=== PATIENT | female | born 1985 | race Caucasian/White ===

== ENCOUNTER 2016-08-15 14:03 | Outpatient (CLI) | payer MEDICAID ==
[~2016-08-15] VITALS: Ht 147.3 cm; Wt 76.4 kg
[2016-08-15 15:02] VITALS: BP 110/62; PULSE 77; Ht 147.3 cm; Wt 76.4 kg
[2016-08-15] MEDS ORDERED: PRENAT PO (15:03)
--- NOTE | 2016-08-15 17:23 | RADRPT ---
PROCEDURE: OB ultrasound for biophysical profile CLINICAL INDICATION: Biophysical profile. TECHNIQUE: Multiple sonographic images of the pelvis were obtained. Transabdominal view of the gr avid uterus are available for review. The images were reviewed on a PACS workstation. COMPARISON: None FINDINGS: breathing movement = 2/2 tone = 2/2 motion = 2/2 Quantitative amniotic fluid volume = 2/2 MALLY = 10.5 cm Single live intrauterine with cardiac activity at 138 beats per minute. There is a anterior placenta without previa. The cervix is closed and measures 3.6 cm in length. IMPRESSION: 1. Single living intrauterine gestation in breech position. 2. Biophysical profile = 8/8. 3. MALLY = 10.5 cm. RPTAT: AACC Physician Marian Date Time Electronically viewed and signed by Physician Marian on 08/15/2016 17:22 /
--- NOTE | 2016-08-15 18:56 | CONS ---
Date/Time of Note Date/Time of Note DATE: 08/15/16 TIME: 18:48 Consultation Date/Type/Reason Admit Date/Time August 15, 2069 OB triage consult Reason for Consultation This patient is 31 years old 9 para 6 she had one set of twins ,3 C- section to a spontaneous vaginal delivery. Her estimated date of delivery is October 29, 2016 which makes her now 29 weeks and 2 days. She came to triage complaining of uterine contraction for 3 days On general examination she is well-developed well-nourished lady at midterm Her abdomen is soft without any contractions . Her vital signs are normal, blood pressure 110/62, pulse rate 77, respiration 18 , and temperature is 98.5 Her urinalysis was negative . An ultrasound study was done The report was a single live intrauterine with cardiac activity of 1 35 bpm and MALLY only of 10.5 cm placenta was anterior without previa cervix was closed and cervical length was 3.6 cm Her biophysical profile was 8 out of 8 Constitutional: No chills, No diaphoresis, No disoriented, No febrile, No improved, No no complaints, No other, No poor po, No requiring IVF, No requiring O2 Eyes: No discharge, No no complaints, No other, No pain, No redness, No visual change ENT: No bleeding, No congestion, No discharge, No dysphagia, No no complaints, No other, No pain, No sore throat Respiratory: No cough, No no complaints, No other, No pain, No pleuritic pain, No shortness of breath, No sputum, No wheezing Cardiovascular: No chest pain, No edema, No lightheadedness, No no complaints, No orthopenea, No other, No palpitations, No paroxysmal nocturnal dyspnea Gastrointestinal: other (No contractions no evidence of labor), No blood, No constipation, No decreased appetite, No diarrhea, No flatus, No nausea, No no complaints, No pain, No passing stool, No vomiting Genitourinary: No bleeding, No discharge, No dysuria, No flank pain, No hematuria, No no complaints, No other Musculoskeletal: other (Pelvic exam was not done), No back pain, No bone/joint pain, No neck pain, No no complaints, No restricted range of motion, No swelling Skin: No bruising, No erythema, No laceration, No no complaints, No other, No pruritis, No rash, No skin lesions Neurologic: No confusion, No dizziness, No focal-weakness, No headache, No no complaints, No other, No seizure, No syncope Endocrine: No dry skin, No no complaints, No other, No polydypsia, No polyuria , No temp intolerance Lymphatic: No adenopathy, No lymphadema, No no complaints, No other, No tender nodes Additional Comments With these normal finding patient was discharged home with instruction to rest at home and return to clinic or to triage in case of labor or vaginal bleeding Social History Smoking Status: Never smoker Exam/Review of Systems Vital Signs Vitals Vital Signs Date Time Temp Pulse Resp B/P Pulse Ox O2 Delivery O2 Flow Rate FiO2 08/15/16 15:02 98.8 77 110/62 ALEAH CHAPPELL MD August 15, 2016 18:56
== END 2016-08-15 19:00 | disposition home or self-care (01) ==
LOC: OBT 14:03 → L-D 14:05 → OBT 19:00
PROVIDERS: ATTEND Obstetrics & Gynecology
DX: O62.8 Other abnormalities of forces of labor (principal); Z3A.29 29 weeks gestation of pregnancy
CPT/HCPCS: 76817; 76818; Z7500; G0463

== ENCOUNTER 2016-08-24 00:20 | Outpatient (CLI) | payer MEDICAID ==
[~2016-08-24] VITALS: Ht 147.3 cm; Wt 77.1 kg
[~2016-08-24 00:20] MED LIST: PRENAT PO
[2016-08-24 00:59] VITALS: Ht 147.3 cm; Wt 77.1 kg
[2016-08-24 01:28] LABS: ADD UMIC YES; URINE BILIRUBIN (Dip) NEGATIVE (NEGATIVE); URINE BLOOD (Dip) TRACE (NEGATIVE); URINE COLOR LT. YELLOW (YELLOW); URINE GLUCOSE (Dip) NEGATIVE (NEGATIVE); URINE KETONES (Dip) NEGATIVE (NEGATIVE); URINE LEUKOCYTE ESTERASE (Dip) 1+ (NEGATIVE); URINE NITRITE (Dip) NEGATIVE (NEGATIVE); URINE TOTAL PROTEIN (Dip) NEGATIVE (NEGATIVE); URINE UROBILINOGEN (Dip) 0.2 E.U./dL (0.1-1.0)
[2016-08-24 01:41] LABS: SQUAMOUS EPITHELIAL CELL,UR MODERATE
[2016-08-24 01:42] LABS: BACTERIA,URINE MODERATE
--- NOTE | 2016-08-24 02:51 | RADRPT ---
PROCEDURE: ULTRASOUND OBSTETRICAL CLINICAL INDICATION: 31-year-old female with contractions for cervical length evaluation. TECHNIQUE: Multiple sonographic images of the pelvis were obtained. The images were reviewed on a PACS workstation. COMPARISON: No prior studies are available for comparison. FINDINGS: The cervix is closed with a length of 3.7 cm measured transvaginally. IMPRESSION: The cervix has a length of 3.7 cm. .Malik Kruger MD, MD Date Time Electronically viewed and signed by .Malik Kruger MD, on 08/24/2016 02:51 .M/
--- NOTE | 2016-08-24 04:10 | TRIAGE ---
OB Triage Datetime Report Generated by CPN: 08/24/2016 04:10 Datetime: 08/24/2016 03:00 Labor Evaluation Frequency: NONE Duration (sec)2399: NONE FHR Baseline Changes: No Baseline Change Comments: INDETERMINATE;FREQ MATERNAL REPOSITIONING Datetime: 08/24/2016 02:30 FHR Baseline Changes: No Baseline Change Comments: INDETERMINATE, FREQUENT MATERNAL MOVEMENT Datetime: 08/24/2016 01:30 Labor Evaluation Frequency: NONE Monitor Mode: External Duration (sec)2399: NONE Pattern: Normal: <= 5 Contractions in 10 Minutes Heart Rate FHR Baseline Rate: 145 Monitor Mode: Internal Scalp Electrode FHR Baseline Changes: No Baseline Change Variability: Moderate 6-25 bpm Accelerations: 10X10 Datetime: 08/24/2016 01:02 Assessment Type: Triage Maternal Assessment Level of Consciousness: Fully Conscious Headache: Denies Blurred Vision: No Respiratory Effort: Unlabored; Regular Rhythm; Equal Expansion Nausea/Vomiting: Denies RUQ Epigastric Pain: Denies Facial Edema: None Fall Risk Assessment History of Falling: (0) No Secondary Diagnosis: (0) No Ambulatory Aid: (0) Bedrest/Nurse Assist IV Therapy: (0) No Gait: (0) Normal/Bedrest/Immobile Mental Status: (0) Oriented to Own Ability Fall Score: 0 Fall Risk Score Definition: No Risk: No action required Datetime: 08/24/2016 00:41 Stage of : OB Triage Temperature Route: Oral Datetime: 08/24/2016 00:17 Time of Arrival: 08/24/2016 00:17 EGA: 30.4 Arrived By: Wheelchair Arrived From: Home Chief Complaint: VAG PRESSURE, FREQUENT URINATION Movement: Present Contractions: Denies/Absent Rupture of Membranes: Denies Vaginal Bleeding: None Vaginal Discharge: Denies Recent Sexual Intercouse: Yes Abdominal Trauma: Not Applicable Patient Complaints: Urinary Frequency Time Provider Notified: 08/24/2016 02:00 Provider Notified: DR. ZAPATA Initial Plan: EFM, UA, CALL OB, CVL Datetime: 08/15/2016 18:52 Labor Evaluation Frequency: 0 Monitor Mode: External Resting Tone Vader: Relaxed Heart Rate FHR Baseline Rate: 145 Monitor Mode: External US Variability: Moderate 6-25 bpm Decelerations: None Category: Category I Pain Assessment Pain Scale: 0 Pain Presence: None/Denies Pain Type: N/A Pain Goal: 3 Pain Relief Measures: Comfort Measures Datetime: 08/15/2016 18:45 Stage of : OB Triage Datetime: 08/15/2016 17:00 Labor Evaluation Frequency: 0 Monitor Mode: External Resting Tone Vader: Relaxed Heart Rate FHR Baseline Rate: 145 Monitor Mode: External US Variability: Moderate 6-25 bpm Decelerations: None Category: Category I Pain Assessment Pain Scale: 0 Pain Presence: None/Denies Pain Type: N/A Pain Goal: 3 Pain Relief Measures: Comfort Measures Datetime: 08/15/2016 16:10 Stage of : OB Triage Datetime: 08/15/2016 16:05 Labor Evaluation Frequency: 0 Monitor Mode: External Resting Tone Vader: Relaxed Heart Rate FHR Baseline Rate: 145 Monitor Mode: External US Variability: Moderate 6-25 bpm Decelerations: None Category: Category I Pain Assessment Pain Scale: 3 Pain Presence: None/Denies Pain Type: N/A Pain Goal: 3 Pain Relief Measures: Comfort Measures Datetime: 08/15/2016 14:58 Stage of : OB Triage Assessment Type: Triage Maternal Assessment Level of Consciousness: Fully Conscious DTR's/Clonus: DTRs 2+; No Clonus Headache: Denies Blurred Vision: No Respiratory Effort: Unlabored; Regular Rhythm; Equal Expansion Breath Sounds, Left: Clear and Equal Breath Sounds, Right: Clear and Equal Nausea/Vomiting: Denies RUQ Epigastric Pain: Denies Facial Edema: None Temperature Route: Axillary Fall Risk Assessment History of Falling: (0) No Secondary Diagnosis: (0) No Ambulatory Aid: (0) Bedrest/Nurse Assist IV Therapy: (0) No Gait: (0) Normal/Bedrest/Immobile Mental Status: (0) Oriented to Own Ability Fall Score: 0 Fall Risk Score Definition: No Risk: No action required Labor Evaluation Frequency: 0 Monitor Mode: External Resting Tone Vader: Relaxed Heart Rate FHR Baseline Rate: 145 Monitor Mode: External US Variability: Moderate 6-25 bpm Accelerations: 10X10 Decelerations: None Category: Category I Pain Assessment Pain Scale: 2 Pain Presence: Intermittent Pain Type: Cramping Pain Location: Perineum Pain Goal: 3 Pain Relief Measures: Comfort Measures Datetime: 08/15/2016 14:57 EGA: 29.2 Datetime: 08/15/2016 14:56 Time of Arrival: 08/15/2016 13:53 Arrived By: Ambulatory Arrived From: Dr. Pineda Chief Complaint: SENT FROM OFFICE FOR C/O UC'S Q 20 MIN X 3 DAYS. PREVIOUS C/S. DENIES BLEEDING O R LEAKING OF FLUID Movement: Present Contractions: Occasional Rupture of Membranes: Denies Vaginal Bleeding: None Vaginal Discharge: Denies Recent Sexual Intercouse: Denies Abdominal Trauma: Not Applicable Patient Complaints: Contractions; Cramping Time Provider Notified: 08/15/2016 16:10 Provider Notified: EVANGELIST Initial Plan: MONITOR, BPP, MALLY, CL
--- NOTE | 2016-08-24 04:21 | PN ---
Triage Information Date/Time 31-year-old with IUP at 30 weeks and 4 days complaining of urinary frequency and pelvic pressure symptoms. Symptoms a started since midnight 2 days ago. Patient has a history of drug usage during . Her U tox was positive for amphetamine. She admits using drugs during . She denies any leaking of fluid, vaginal bleeding or decreased movement. Her urine toxicology during is positive for methamphetamine. Weeks of Gestation 30 weeks and 4 days : 8 Para: 5 Diabetes: none Hypertention: none Additional information She was noted to have no contraction on the monitor. NST appropriate for gestational age. Objective Exam General appearance: Alert and oriented 4 patient does not appear to be in any acute distress. Abdomen: Soft, gravid, fundal height consistent with gestational age. NST: Appropriate for gestational age. No contraction seen on the monitor. Cervical length: 3.7 cm Results/Medications Results 24 hrs Laboratory Tests Test 08/24/16 00:40 Urine Color LT. YELLOW Urine Clarity CLEAR Urine pH 6.5 Urine Specific [place] <=1.005 L Urine Ketones NEGATIVE Urine Nitrite NEGATIVE Urine Bilirubin NEGATIVE Urine Urobilinogen 0.2 E.U./dL Urine Leukocyte Esterase 1+ H Urine Microscopic RBC 2-5 Urine WBC [place] FEW Urine Microscopic WBC 25-50 Urine Squamous Epithelial Cells MODERATE Urine Bacteria MODERATE Urine Hemoglobin TRACE Urine Glucose NEGATIVE Urine Total Protein NEGATIVE Imaging Results PROCEDURE: ULTRASOUND OBSTETRICAL CLINICAL INDICATION: 31-year-old female with contractions for cervical length evaluation. TECHNIQUE: Multiple sonographic images of the pelvis were obtained. The images were reviewed on a PACS workstation. COMPARISON: No prior studies are available for comparison. FINDINGS: The cervix is closed with a length of 3.7 cm measured transvaginally. IMPRESSION: The cervix has a length of 3.7 cm Assessment/Plan IUP at 30 weeks and 4 days urinary frequency and pelvic pressure due to UTI No evidence of labor testing reassuring Urine consistent with UTI We will treat with Keflex 4 times daily for 7 days Adequate hydration discussed labor precaution and kick count and follow-up with her primary OB in 1-3 days after discharge discussed Return to triage as needed any other concerns or with decreased movement, increased contractions, vaginal bleeding, worsening of UTI symptoms, fever chills or any other concerns. AMADO ZAPATA MD Aug 24, 2016 04:21
== END 2016-08-24 03:18 | disposition home or self-care (01) ==
LOC: L-D 00:20 → OBT 00:20
PROVIDERS: ATTEND Obstetrics & Gynecology
DX: O23.43 Unspecified infection of urinary tract in pregnancy, third trimester (principal); O62.9 Abnormality of forces of labor, unspecified; O99.323 Drug use complicating pregnancy, third trimester; F15.10 Other stimulant abuse, uncomplicated; Z3A.30 30 weeks gestation of pregnancy
CPT/HCPCS: 76817; 81001; 87086; Z7500; G0463

== ENCOUNTER 2016-09-06 13:55 | Outpatient (CLI) | payer MEDICAID ==
[~2016-09-06] VITALS: Ht 154.9 cm; Wt 76.7 kg
[2016-09-06 15:16] VITALS: BP 113/74; PULSE 99; Ht 154.9 cm; Wt 76.7 kg
[2016-09-06] MEDS ORDERED: ONDANSETRON 4 MG INJ IV STA (15:45)
[2016-09-06] MEDS ORDERED: LACTATED RINGER'S 1,000 ML IV SCH (16:00)
[2016-09-06 16:10] LABS: ADD SCAN DIFF NO
[2016-09-06 16:12] LABS: BASOPHILS % 0.1 % (0.0-2.0); EOSINOPHILS # 0.1 10^3/ul (0.0-0.5); EOSINOPHILS % 0.8 % (0.0-7.0); HEMATOCRIT 27.2 % (37.0-47.0); LYMPHOCYTES % 20.2 % (15.0-51.0); MEAN CORPUSCULAR HEMOGLOBIN 27.6 pg (29.0-33.0); MEAN CORPUSCULAR HGB CONC 33.1 g/dl (32.0-37.0); MEAN CORPUSCULAR VOLUME 83.4 fl (82.0-101.0); MEAN PLATELET VOLUME 12.5 fl (7.4-10.4); MONOCYTE # 0.8 10^3/ul (0.3-0.9); MONOCYTES % 8.2 % (0.0-11.0); NEUTROPHIL # 6.9 10^3/ul (1.6-7.5); NEUTROPHILS % 69.3 % (39.0-77.0); NUCLEATED RED BLOOD CELLS% 0.2 /100WBC (0.0-0.0); PLATELET COUNT 148 10^3/UL (140-415); RED BLOOD COUNT 3.26 10^6/ul (4.20-5.40); RED CELL DISTRIBUTION WIDTH 14.2 % (11.5-14.5); WHITE BLOOD COUNT 9.9 10^3/ul (4.8-10.8)
[2016-09-06 16:33] LABS: ADD UMIC YES; UR BILIRUBIN (Dip) NEGATIVE (NEGATIVE); UR BLOOD (Dip) NEGATIVE (NEGATIVE); UR CLARITY CLEAR (CLEAR); UR COLOR LT. YELLOW (YELLOW); UR GLUCOSE (Dip) NEGATIVE (NEGATIVE); UR KETONES (Dip) NEGATIVE (NEGATIVE); UR LEUKOCYTE ESTERASE (Dip) TRACE (NEGATIVE); UR NITRITE (Dip) NEGATIVE (NEGATIVE); UR TOTAL PROTEIN (Dip) NEGATIVE (NEGATIVE); UR UROBILINOGEN (Dip) 0.2 E.U./dL (0.1-1.0)
[2016-09-06 16:34] LABS: ALBUMIN 3.8 g/dl (3.3-4.9); ALBUMIN/GLOBULIN RATIO 1.18; CALCIUM 9.4 mg/dl (8.4-10.2); CREATININE 0.5 mg/dl (0.44-1.00); POTASSIUM 3.9 mmol/L (3.5-5.1)
[2016-09-06 17:13] LABS: UR SQUAMOUS EPITHELIAL CELL MODERATE /HPF (FEW)
--- NOTE | 2016-09-06 17:22 | RADRPT ---
PROCEDURE: Obstetrical ultrasound greater than 14 weeks CLINICAL INDICATION: labor TECHNIQUE: Real time sonographic imaging of the gravid uterus is performed transabdominally and mu ltiple static oseguera scale and Doppler images are submitted for review as are measurements. The image s are reviewed on the PACS. COMPARISON: 08/24/2016 FINDINGS: The cervical os is closed with a normal cervical length of 3.3 cm. There is a single living intrauterine gestation in cephalic presentation. The heart beat is estimated at 135 bpm. Placenta is anterior and grade2. There is no evidence of placenta previa or abruption. RPTAT:HJJR IMPRESSION: 1. Single viable intrauterine gestation in cephalic presentation with the cervical length estimated at 3.3 cm, previously estimated at 3.7 cm on the study of 08/24/2016. Physician Elvira Date Time Electronically viewed and signed by Physician Elvira on 09/06/2016 17:22 /
--- NOTE | 2016-09-06 20:04 | RADRPT ---
PROCEDURE: US OB biophysical profile. CLINICAL INDICATION: labor TECHNIQUE: Multiple sonographic images of the pelvis were obtained. The images were reviewed on a PACS workstation. COMPARISON: 08/15/2016 FINDINGS: There is a single viable intrauterine gestation. There is a normal amount of amniotic fluid with an MALLY = 11.8 cm cm. Cardiac activity is present with 161 beats per minute. There is a vertex presentation. The placenta is anterior. Biophysical profile: movement 2/2 tone 2/2. breathing 2/2 MALLY 2/2 Total 10/24 IMPRESSION: 1. Single viable intrauterine gestation in cephalic presentation. 2. Biophysical profile = 10/24. 3. Anterior placenta. 4. Normal amniotic fluid index of 11.8 cm. RPTAT:AAJJ . Physician Charles Date Time Electronically viewed and signed by Eben Henriquez Physician on 09/06/2016 20:04 ROSE/
--- NOTE | 2016-09-06 22:15 | TRIAGE ---
OB Triage Datetime Report Generated by CPN: 09/06/2016 22:15 Datetime: 09/06/2016 20:30 Stage of : OB Triage Datetime: 09/06/2016 20:12 Assessment Type: Triage Maternal Assessment Level of Consciousness: Fully Conscious Headache: Denies Blurred Vision: No Lower Extremities Edema: Bilateral Lower Extremities Degree: 1+ Datetime: 09/06/2016 19:24 Monitor Mode: Palpation Resting Tone Symonds: Relaxed Datetime: 09/06/2016 18:36 Labor Evaluation Frequency: OCCAS Monitor Mode: External Duration (sec)2399: 50-60 Resting Tone Symonds: Relaxed Heart Rate FHR Baseline Rate: 150 Monitor Mode: External US Variability: Moderate 6-25 bpm Accelerations: 10X10 Decelerations: Variable Category: Category II Pain Assessment Pain Scale: 0 Pain Presence: None/Denies Pain Type: N/A Pain Goal: 3 Pain Relief Measures: Comfort Measures Datetime: 09/06/2016 18:11 Stage of : OB Triage Datetime: 09/06/2016 17:26 Labor Evaluation Frequency: 0 Monitor Mode: External Resting Tone Symonds: Relaxed Heart Rate FHR Baseline Rate: 145 Monitor Mode: External US Variability: Moderate 6-25 bpm Accelerations: 10X10 Decelerations: None Category: Category I Pain Assessment Pain Scale: 0 Pain Presence: None/Denies Pain Type: N/A Pain Goal: 3 Pain Relief Measures: Comfort Measures Datetime: 09/06/2016 16:26 Labor Evaluation Frequency: 0 Monitor Mode: External Resting Tone Symonds: Relaxed Heart Rate FHR Baseline Rate: 155 Monitor Mode: External US Variability: Moderate 6-25 bpm Decelerations: None Category: Category I Pain Assessment Pain Scale: 0 Pain Presence: None/Denies Pain Type: N/A Pain Goal: 3 Pain Relief Measures: Comfort Measures Datetime: 09/06/2016 15:13 Stage of : OB Triage Assessment Type: Triage Maternal Assessment Level of Consciousness: Fully Conscious DTR's/Clonus: DTRs 2+; No Clonus Headache: Denies Blurred Vision: No Respiratory Effort: Unlabored; Regular Rhythm; Equal Expansion Breath Sounds, Left: Clear and Equal Breath Sounds, Right: Clear and Equal Nausea/Vomiting: Denies RUQ Epigastric Pain: Denies Facial Edema: None Temperature Route: Axillary Fall Risk Assessment History of Falling: (0) No Secondary Diagnosis: (0) No Ambulatory Aid: (0) Bedrest/Nurse Assist IV Therapy: (0) No Gait: (0) Normal/Bedrest/Immobile Mental Status: (0) Oriented to Own Ability Labor Evaluation Frequency: 0 Monitor Mode: External Resting Tone Symonds: Relaxed Heart Rate FHR Baseline Rate: 155 Monitor Mode: External US Variability: Moderate 6-25 bpm Accelerations: 10X10 Decelerations: None Category: Category I Pain Assessment Pain Scale: 0 Pain Presence: None/Denies Pain Type: N/A Pain Goal: 3 Pain Relief Measures: Comfort Measures Datetime: 09/06/2016 15:12 Time of Arrival: 09/06/2016 13:47 Arrived By: Ambulatory Arrived From: Home Chief Complaint: VAG PRESSURE, N/V, BACK PAIN, DENIES BLEEDING, LEAKING OR UC'S Movement: Present Rupture of Membranes: Denies Vaginal Bleeding: None Vaginal Discharge: Denies Recent Sexual Intercouse: Denies Abdominal Trauma: Not Applicable Time Provider Notified: 09/06/2016 15:40 Provider Notified: ARDALAN Initial Plan: MONITOR, L, CBC, CMP, U/A, ZOFRAN, IV HYDRATION Datetime: 08/24/2016 01:02 Fall Score: 0 Fall Risk Score Definition: No Risk: No action required Datetime: 08/24/2016 00:17 EGA: 30.4 Datetime: 08/15/2016 14:58 Fall Score: 0 Fall Risk Score Definition: No Risk: No action required Datetime: 08/15/2016 14:57 EGA: 29.2
--- NOTE | 2016-09-07 00:38 | PN ---
Triage Information Date/Time 09/06/2016 late entry note 31 years old with IUP at 32 .3 weeks presented with C/O nasusea and vomiting since today. Denies any fever, chills, diarrhea. LOF, vaginal bleeding or decreased movement. Denies any abdominal pain, or contractions. Weeks of Gestation 32.3 weeks : 8 Para: 6 Diabetes: none Hypertention: none Additional information GA: A&O, NAD Abdomen: Soft, Gravid, non tender. no CVA tenderness Fundal Height correlates with GA NST: Cat 1 Hematology - 72 Hrs Test 09/06/16 16:00 White Blood Count 9.910^3/ul (4.8-10.8) Red Blood Count 3.2610^6/ul (4.20-5.40) L Hemoglobin 9.0g/dl (12.0-16.0) L Hematocrit 27.2% (37.0-47.0) L Mean Corpuscular Volume 83.4fl (82.0-101.0) Mean Corpuscular Hemoglobin 27.6pg (29.0-33.0) L Mean Corpuscular Hemoglobin Concent 33.1g/dl (32.0-37.0) Red Cell Distribution Width 14.2% (11.5-14.5) Platelet Count 44624^3/UL (140-415) Mean Platelet Volume 12.5fl (7.4-10.4) H Neutrophils % 69.3% (39.0-77.0) Lymphocytes % 20.2% (15.0-51.0) Monocytes % 8.2% (0.0-11.0) Eosinophils % 0.8% (0.0-7.0) Basophils % 0.1% (0.0-2.0) Nucleated Red Blood Cells % 0.2/100WBC (0.0-0.0) H Neutrophils # 6.910^3/ul (1.6-7.5) Lymphocytes # 2.010^3/ul (0.8-2.9) Monocytes # 0.810^3/ul (0.3-0.9) Eosinophils # 0.110^3/ul (0.0-0.5) Basophils # 0.010^3/ul (0.0-0.1) Nucleated Red Blood Cells # 0.010^3/ul (0.0-0.0) Chemistry Test 09/06/16 16:00 Sodium Level 133mmol/L (135-144) L Potassium Level 3.9mmol/L (3.5-5.1) Chloride Level 106mmol/L (97-110) Carbon Dioxide Level 21mmol/L (21-31) Anion Gap 10 (8-16) Blood Urea Nitrogen 9mg/dl (7-20) Creatinine 0.50mg/dl (0.44-1.00) Glucose Level 100mg/dl (70-220) Calcium Level 9.4mg/dl (8.4-10.2) Total Bilirubin 0.0mg/dl (0.2-1.3) L Direct Bilirubin 0.00mg/dl (0.00-0.20) Indirect Bilirubin 0.0mg/dl (0-1.1) Aspartate Amino Transf (AST/SGOT) 28IU/L (15-46) Alanine Aminotransferase (ALT/SGPT) 39IU/L (13-69) Alkaline Phosphatase 159IU/L (42-121) H Total Protein 7.0g/dl (6.1-8.1) Albumin 3.8g/dl (3.3-4.9) Globulin 3.20g/dl (1.3-3.2) Albumin/Globulin Ratio 1.18 Objective Vital Signs Date Time Temp Pulse Resp B/P Pulse Ox O2 Delivery O2 Flow Rate FiO2 09/06/16 15:16 97.4 99 113/74 Heart Rate: 130's Contractions: >10 Minutes Apart Results/Medications Result Diagram: 09/06/16 1600 09/06/16 1600 Results 24 hrs Laboratory Tests Test 09/06/16 15:20 09/06/16 16:00 Urine Color LT. YELLOW Urine Clarity CLEAR Urine pH Urine Specific [place] 1.020 Urine Ketones NEGATIVE Urine Nitrite NEGATIVE Urine Bilirubin NEGATIVE Urine Urobilinogen 0.2 E.U./dL Urine Leukocyte Esterase TRACE H Urine Microscopic WBC 0-2 Urine Squamous Epithelial Cells MODERATE Urine Hemoglobin NEGATIVE Urine Glucose NEGATIVE Urine Total Protein NEGATIVE White Blood Count 9.9 Red Blood Count 3.26 L Hemoglobin 9.0 L Hematocrit 27.2 L Mean Corpuscular Volume 83.4 Mean Corpuscular Hemoglobin 27.6 L Mean Corpuscular Hemoglobin Concent 33.1 Red Cell Distribution Width 14.2 Platelet Count 148 Mean Platelet Volume 12.5 H Neutrophils % 69.3 Lymphocytes % 20.2 Monocytes % 8.2 Eosinophils % 0.8 Basophils % 0.1 Nucleated Red Blood Cells % 0.2 H Neutrophils # 6.9 Lymphocytes # 2.0 Monocytes # 0.8 Eosinophils # 0.1 Basophils # 0.0 Nucleated Red Blood Cells # 0.0 Sodium Level 133 L Potassium Level 3.9 Chloride Level 106 Carbon Dioxide Level 21 Anion Gap 10 Blood Urea Nitrogen 9 Creatinine 0.50 Glucose Level 100 Calcium Level 9.4 Total Bilirubin 0.0 L Direct Bilirubin 0.00 Indirect Bilirubin 0.0 Aspartate Amino Transf (AST/SGOT) 28 Alanine Aminotransferase (ALT/SGPT) 39 Alkaline Phosphatase 159 H Total Protein 7.0 Albumin 3.8 Globulin 3.20 Albumin/Globulin Ratio 1.18 Imaging Results PROCEDURE: US OB biophysical profile. CLINICAL INDICATION: labor TECHNIQUE: Multiple sonographic images of the pelvis were obtained. The images were reviewed on a PACS workstation. COMPARISON: 08/15/2016 FINDINGS: There is a single viable intrauterine gestation. There is a normal amount of amniotic fluid with an MALLY = 11.8 cm cm. Cardiac activity is present with 161 beats per minute. There is a vertex presentation. The placenta is anterior. Biophysical profile: movement 2/2 tone 2/2. breathing 2/2 MALLY 2/2 Total 8/8 IMPRESSION: 1. Single viable intrauterine gestation in cephalic presentation. 2. Biophysical profile = 8/8. 3. Anterior placenta. 4. Normal amniotic fluid index of 11.8 cm. RPTAT:AAJJ . PROCEDURE: Obstetrical ultrasound greater than 14 weeks CLINICAL INDICATION: labor TECHNIQUE: Real time sonographic imaging of the gravid uterus is performed transabdominally and multiple static oseguera scale and Doppler images are submitted for review as are measurements. The images are reviewed on the PACS. COMPARISON: 08/24/2016 FINDINGS: The cervical os is closed with a normal cervical length of 3.3 cm. There is a single living intrauterine gestation in cephalic presentation. The heart beat is estimated at 135 bpm. Placenta is anterior and grade2. There is no evidence of placenta previa or abruption. RPTAT:HJJR IMPRESSION: 1. Single viable intrauterine gestation in cephalic presentation with the cervical length estimated at 3.3 cm, previously estimated at 3.7 cm on the study of 08/24/2016. Ritchie Mejias, Physician Date Time Assessment/Plan IUP at 32,3 days Nausea and vomiting S/p IV Zofran and IV fluids improved. Patient tolerated PO No evidence of infection Likely related to GERD DC home PTL precaution [facility] Follow up with ob office in 1-2 days RT triage if has any fever, chills, LOF, vaginal bleeding,. contractions, inability to tolerate PO well or any other concerns AMADO ZAPATA MD Sep 07, 2016 00:38
== END 2016-09-06 20:30 | disposition home or self-care (01) ==
LOC: OBT 13:55 → L-D 13:56 → OBT 20:30
PROVIDERS: ATTEND Obstetrics & Gynecology
DX: O21.2 Late vomiting of pregnancy (principal); O47.03 False labor before 37 completed weeks of gestation, third trimester; Z3A.32 32 weeks gestation of pregnancy
CPT/HCPCS: 76817; 76818; 80053; 81001; 85025; J7120; 36415; 96360; 96361; G0463

== ENCOUNTER 2016-09-19 19:18 | Outpatient (CLI) | payer SELFPAY ==
[~2016-09-19] VITALS: Ht 154.9 cm; Wt 78.8 kg
[2016-09-19 20:08] VITALS: Ht 154.9 cm; Wt 78.8 kg
[2016-09-19 20:09] VITALS: BP 123/75; PULSE 86; RESP 16
[2016-09-19] MEDS ORDERED: LACTATED RINGER'S 1,000 ML IV ONE (21:15)
--- NOTE | 2016-09-19 21:56 | RADRPT ---
PROCEDURE: OB ultrasound for biophysical profile CLINICAL INDICATION: Biophysical profile. . TECHNIQUE: Multiple sonographic images of the pelvis were obtained. Transabdominal views are obta ined. COMPARISON: 09/06/2016 FINDINGS: Single intrauterine gestation. Presentation: Cephalic. Placenta: Anterior. No evidence of placental abruption. No evidence of placenta previa. breathing movement = 2/2 tone = 2/2 motion = 2/2 MALLY = 2/2 MALLY = 11.6 cm; previous 11.8 cm heart rate: 130 beats per minute IMPRESSION: Single intrauterine gestation. Biophysical profile 10/24 RPTAT: AADD .Jeff Santiago MD, MD Date Time Electronically viewed and signed by .Jeff Santiago MD, on 09/19/2016 21:56 .B/
[2016-09-19 22:13] LABS: ADD SCAN DIFF NO
[2016-09-19] MEDS ORDERED: LACTATED RINGER'S 1,000 ML IV SCH (22:15)
[2016-09-19 22:22] LABS: ADD UMIC YES; UR ASCORBIC ACID NEGATIVE (NEGATIVE); UR BACTERIA FEW /HPF (NONE SEEN); UR BILIRUBIN (Dip) NEGATIVE (NEGATIVE); UR BLOOD (Dip) 2+ mg/dL (NEGATIVE); UR CLARITY SLIGHTLY CLOUDY (CLEAR); UR COLOR YELLOW (YELLOW); UR GLUCOSE (Dip) NEGATIVE (NEGATIVE); UR KETONES (Dip) NEGATIVE (NEGATIVE); UR LEUKOCYTE ESTERASE (Dip) 2+ Leu/ul (NEGATIVE); UR MUCUS FEW /HPF (NONE SEEN); UR NITRITE (Dip) NEGATIVE (NEGATIVE); UR RBC 65 /HPF (0-5); UR SPECIFIC GRAVITY (Dip) 1.012 (1.003-1.030); UR TOTAL PROTEIN (Dip) 2+ mg/dl (NEGATIVE); UR UROBILINOGEN (Dip) NEGATIVE (NEGATIVE)
[2016-09-19 22:32] LABS: BASOPHILS % 0.2 % (0.0-2.0); EOSINOPHILS # 0.1 10^3/ul (0.0-0.5); EOSINOPHILS % 0.7 % (0.0-7.0); HEMATOCRIT 28.1 % (37.0-47.0); HEMOGLOBIN 9.3 g/dl (12.0-16.0); LYMPHOCYTES # 2.5 10^3/ul (0.8-2.9); LYMPHOCYTES % 19.3 % (15.0-51.0); MEAN CORPUSCULAR HEMOGLOBIN 26.6 pg (29.0-33.0); MEAN CORPUSCULAR HGB CONC 33.1 g/dl (32.0-37.0); MEAN CORPUSCULAR VOLUME 80.5 fl (82.0-101.0); MEAN PLATELET VOLUME 12.1 fl (7.4-10.4); MONOCYTE # 0.9 10^3/ul (0.3-0.9); MONOCYTES % 6.9 % (0.0-11.0); NEUTROPHIL # 9.2 10^3/ul (1.6-7.5); NEUTROPHILS % 71.8 % (39.0-77.0); NUCLEATED RED BLOOD CELLS% 0.2 /100WBC (0.0-0.0); PLATELET COUNT 128 10^3/UL (140-415); RED BLOOD COUNT 3.49 10^6/ul (4.20-5.40); RED CELL DISTRIBUTION WIDTH 14.6 % (11.5-14.5); WHITE BLOOD COUNT 12.8 10^3/ul (4.8-10.8)
[2016-09-20] MEDS ORDERED: SOD CHLORIDE 0.9% 1,000 ML IV STA (00:11)
[2016-09-20] MEDS ORDERED: CEFTRIAXONE 2 GM/50 ML (PMX) 50 ML IVPB ONE (00:20)
--- NOTE | 2016-09-20 00:23 | PN ---
Triage Information Date/Time September 20 14 Weeks of Gestation 34 weeks2/7 presented herself to triage unit with complaint of back which is covering her entire back without CVA tenderness however since patient is urine was showing some blood protein and leukocyte esterase urine sent for culture and sensitivity recommended 2 g of Rocephin prophylactic for UTI patient advised to follow with [facility], received a prescription of Macrobid 1 tablet twice daily until the culture report is available : 8 Para: 6 Diabetes: none Hypertention: none Objective Vital Signs Date Time Temp Pulse Resp B/P Pulse Ox O2 Delivery O2 Flow Rate FiO2 09/19/16 20:09 98.3 86 16 123/75 Room Air Heart Rate: 130's Contractions: None Results/Medications Result Diagram: 09/19/162199 Results 24 hrs Laboratory Tests Test 09/19/16 19:30 09/19/16 22:00 Urine Color YELLOW Urine Clarity SLIGHTLY CLOUDY A Urine pH 6.0 Urine Specific [place] 1.012 Urine Ketones NEGATIVE Urine Nitrite NEGATIVE Urine Bilirubin NEGATIVE Urine Urobilinogen NEGATIVE Urine Leukocyte Esterase 2+ H Urine Microscopic RBC 65 H Urine Microscopic WBC 58 H Urine Bacteria FEW A Urine Mucus FEW A Urine Hemoglobin 2+ H Urine Glucose NEGATIVE Urine Total Protein 2+ H White Blood Count 12.8 #H Red Blood Count 3.49 L Hemoglobin 9.3 L Hematocrit 28.1 L Mean Corpuscular Volume 80.5 L Mean Corpuscular Hemoglobin 26.6 L Mean Corpuscular Hemoglobin Concent 33.1 Red Cell Distribution Width 14.6 H Platelet Count 128 L Mean Platelet Volume 12.1 H Neutrophils % 71.8 Lymphocytes % 19.3 Monocytes % 6.9 Eosinophils % 0.7 Basophils % 0.2 Nucleated Red Blood Cells % 0.2 H Neutrophils # 9.2 H Lymphocytes # 2.5 Monocytes # 0.9 Eosinophils # 0.1 Basophils # 0.0 Nucleated Red Blood Cells # 0.0 Medications Current Medications Lactated Ringer's (Lr) 1,000 ml @ 125 mls/hr Q8H IV Last administered on 22:00; Admin Dose 125 MLS/HR; Start 09/19/16 at 22:15 DM BLANCA MD Sep 20, 2016 00:23
--- NOTE | 2016-09-20 04:13 | TRIAGE ---
OB Triage Datetime Report Generated by CPN: 09/20/2016 04:13 Datetime: 09/20/2016 01:14 Stage of : OB Triage Datetime: 09/20/2016 01:00 Stage of : OB Triage Labor Evaluation Frequency: occasional Monitor Mode: External Duration (sec)2399: 40-50 Quality: Mild Resting Tone [place]: Relaxed Heart Rate FHR Baseline Rate: 130 Monitor Mode: External US Variability: Moderate 6-25 bpm Accelerations: 15X15 Decelerations: None Category: Category I Pain Assessment Pain Scale: 3 Pain Presence: Constant Pain Type: Ache Pain Goal: 0 Pain Relief Measures: Comfort Measures Datetime: 09/20/2016 00:30 Stage of : OB Triage Labor Evaluation Frequency: occasional Monitor Mode: External Duration (sec)2399: 40-50 Quality: Mild Resting Tone [place]: Relaxed Heart Rate FHR Baseline Rate: 135 Monitor Mode: External US FHR Baseline Changes: No Baseline Change Variability: Moderate 6-25 bpm Accelerations: 15X15 Decelerations: None Category: Category I Pain Assessment Pain Scale: 3 Pain Presence: Constant Pain Type: Ache Pain Location: Back Pain Goal: 0 Pain Relief Measures: Comfort Measures Datetime: 09/19/2016 23:30 Stage of : OB Triage Labor Evaluation Frequency: OCCASIONALLY Monitor Mode: External Duration (sec)2399: 40-50 Heart Rate FHR Baseline Rate: 135 Monitor Mode: External US Variability: Moderate 6-25 bpm Accelerations: 15X15 Decelerations: None Category: Category I Pain Assessment Pain Scale: 4 Pain Presence: Intermittent Pain Type: Pressure Pain Location: Abdomen; Back Pain Goal: 3 Datetime: 09/19/2016 22:30 Stage of : OB Triage Labor Evaluation Frequency: OCCASIONALLY Monitor Mode: External Duration (sec)2399: 40-50 Heart Rate FHR Baseline Rate: 145 Monitor Mode: External US Variability: Moderate 6-25 bpm Accelerations: 15X15 Decelerations: None Category: Category I Pain Assessment Pain Scale: 4 Pain Presence: Intermittent Pain Type: Pressure Pain Location: Abdomen; Back Pain Goal: 3 Datetime: 09/19/2016 21:30 Stage of : OB Triage Labor Evaluation Frequency: OCCASIONALLY Monitor Mode: External Duration (sec)2399: 40-50 Heart Rate FHR Baseline Rate: 145 Monitor Mode: External US Variability: Moderate 6-25 bpm Accelerations: 15X15 Decelerations: None Category: Category I Pain Assessment Pain Scale: 4 Pain Presence: Intermittent Pain Type: Pressure Pain Location: Abdomen; Back Pain Goal: 3 Datetime: 09/19/2016 21:29 Stage of : OB Triage Datetime: 09/19/2016 21:16 Stage of : OB Triage Datetime: 09/19/2016 21:01 Membrane Status: Intact Datetime: 09/19/2016 20:58 Vaginal Exam Dilatation (cms): 0.5 Effacement (%): 0 Station: -3 Exam By: MSHAPIRO Vaginal Bleeding: None Cervix, Consistency: Firm Cervix, Position: Posterior Presentation 'A': Cephalic Datetime: 09/19/2016 20:56 Assessment Type: Triage Maternal Assessment Level of Consciousness: Fully Conscious DTR's/Clonus: DTRs 1+; No Clonus Headache: Denies Blurred Vision: No Respiratory Effort: Unlabored Breath Sounds, Left: Clear and Equal Breath Sounds, Right: Clear and Equal Nausea/Vomiting: Denies RUQ Epigastric Pain: Denies Lower Extremities Edema: None Degree: None Upper Extremities Edema: None Degree: None Facial Edema: None Fall Risk Assessment History of Falling: (0) No Secondary Diagnosis: (15) Yes (Annotations: C/S X3) Ambulatory Aid: (0) Bedrest/Nurse Assist IV Therapy: (0) No Gait: (0) Normal/Bedrest/Immobile Mental Status: (0) Oriented to Own Ability Fall Score: 15 Fall Risk Score Definition: No Risk: No action required Datetime: 09/19/2016 20:30 Stage of : OB Triage Labor Evaluation Frequency: OCCASIONALLY Monitor Mode: External Quality: 40 Heart Rate FHR Baseline Rate: 150 Monitor Mode: External US Variability: Moderate 6-25 bpm Accelerations: 10X10 Decelerations: None Category: Category I Pain Assessment Pain Scale: 4 Pain Presence: Intermittent Pain Type: Pressure Pain Location: Abdomen; Back Pain Goal: 3 Datetime: 09/19/2016 19:40 Stage of : OB Triage Labor Evaluation Frequency: OCCASIONALLY Monitor Mode: External Quality: 40 Heart Rate FHR Baseline Rate: 150 Monitor Mode: External US Variability: Moderate 6-25 bpm Accelerations: 10X10 Decelerations: None Category: Category I Pain Assessment Pain Scale: 4 Pain Presence: Intermittent Pain Type: Pressure Pain Location: Abdomen; Back Pain Goal: 3 Datetime: 09/19/2016 19:33 Time of Arrival: 09/19/2016 19:15 EGA: 34.2 Arrived By: Ambulatory Arrived From: Home Chief Complaint: PT c/o back pain Movement: Present Contractions: Irregular Rupture of Membranes: Denies Vaginal Bleeding: None Vaginal Discharge: Denies Recent Sexual Intercouse: Yes Abdominal Trauma: Not Applicable Patient Complaints: Contractions Initial Plan: VS, EFM, UA, BPP, CBC, IV HYDRATION, SVE Datetime: 09/06/2016 15:13 Fall Score: 0 Fall Risk Score Definition: No Risk: No action required Datetime: 09/06/2016 15:12 EGA: 32.3 Datetime: 08/24/2016 01:02 Fall Score: 0 Fall Risk Score Definition: No Risk: No action required Datetime: 08/24/2016 00:17 EGA: 30.4 Datetime: 08/15/2016 14:58 Fall Score: 0 Fall Risk Score Definition: No Risk: No action required Datetime: 08/15/2016 14:57 EGA: 29.2
== END 2016-09-20 01:25 | disposition home or self-care (01) ==
LOC: OBT 19:18 → L-D 19:19 → OBT 09-20 01:25
PROVIDERS: ATTEND Obstetrics & Gynecology
DX: O26.893 Other specified pregnancy related conditions, third trimester (principal); Z3A.34 34 weeks gestation of pregnancy; M54.9 Dorsalgia, unspecified
CPT/HCPCS: 36415; 76818; 81001; 85025; 87086; G0463; J7030; J7120

== ENCOUNTER 2016-09-29 15:19 | Outpatient (CLI) | payer SELFPAY ==
[~2016-09-29] VITALS: Ht 154.9 cm; Wt 79.7 kg
[2016-09-29 15:43] VITALS: Ht 154.9 cm; Wt 79.7 kg
[2016-09-29] MEDS ORDERED: NITR-58 PO (15:43)
[2016-09-29 15:44] VITALS: BP 112/62; PULSE 90; RESP 18
[2016-09-29] MEDS ORDERED: LACTATED RINGER'S 1,000 ML IV* SCH (16:30)
--- NOTE | 2016-09-29 17:23 | RADRPT ---
PROCEDURE: US OB biophysical profile. CLINICAL INDICATION: evaluation TECHNIQUE: Multiple sonographic images of the pelvis were obtained. The images were reviewed on a PACS workstation. COMPARISON: No prior studies are available for comparison. FINDINGS: There is a single viable intrauterine gestation. Cardiac activity is present with 141 beats per min [place]. There is a vertex presentation. The placenta is anterior. There is no evidence of placental abruption. There is a normal amount of amniotic fluid with an MALLY = 9.4 cm. Biophysical profile: movement 2/2 tone 2/2. breathing 2/2 MALLY 2/2 Total 10/24 RPTAT: AA . IMPRESSION: Normal biophysical profile. Physician Luciano Date Time Electronically viewed and signed by Physician Luciano on 09/29/2016 17:22 /
--- NOTE | 2016-09-29 18:04 | TRIAGE ---
OB Triage Datetime Report Generated by CPN: 09/29/2016 18:03 Datetime: 09/29/2016 17:30 Stage of : OB Triage Maternal Assessment Level of Consciousness: Fully Conscious Labor Evaluation Frequency: IRREGULAR Monitor Mode: External Duration (sec)2399: 30-80 Quality: Mild Resting Tone [place]: Relaxed Heart Rate FHR Baseline Rate: 135 Monitor Mode: External US Variability: Moderate 6-25 bpm Accelerations: 15X15 Decelerations: None Pain Assessment Pain Scale: 0 Pain Goal: 3 Vaginal Exam Membrane Status: Intact Vaginal Bleeding: None Datetime: 09/29/2016 16:30 Stage of : OB Triage Maternal Assessment Level of Consciousness: Fully Conscious Labor Evaluation Frequency: IRREGULAR Monitor Mode: External Duration (sec)2399: 30-80 Quality: Mild Resting Tone [place]: Relaxed Heart Rate FHR Baseline Rate: 135 Monitor Mode: External US Variability: Moderate 6-25 bpm Accelerations: 15X15 Decelerations: None Category: Category I Pain Assessment Pain Scale: 0 Pain Goal: 3 Vaginal Exam Membrane Status: Intact Vaginal Bleeding: None Datetime: 09/29/2016 15:40 Assessment Type: Triage Maternal Assessment Level of Consciousness: Fully Conscious DTR's/Clonus: DTRs 2+; No Clonus Headache: Denies Blurred Vision: No Respiratory Effort: Unlabored; Regular Rhythm; Equal Expansion Breath Sounds, Left: Clear and Equal Breath Sounds, Right: Clear and Equal Nausea/Vomiting: Denies RUQ Epigastric Pain: Denies Lower Extremities Edema: None Degree: None Upper Extremities Edema: None Degree: None Facial Edema: None Fall Risk Assessment History of Falling: (0) No Secondary Diagnosis: (0) No Ambulatory Aid: (0) Bedrest/Nurse Assist IV Therapy: (0) No Gait: (0) Normal/Bedrest/Immobile Mental Status: (0) Oriented to Own Ability Fall Score: 0 Fall Risk Score Definition: No Risk: No action required Datetime: 09/29/2016 15:38 Time of Arrival: 09/29/2016 15:15 EGA: 35.5 Arrived By: Ambulatory Arrived From: Home Chief Complaint: PT HERE FOR C/O DFM SINCE 0300 Movement: Decreased Contractions: Denies/Absent Rupture of Membranes: Denies Vaginal Bleeding: None Vaginal Discharge: Denies Recent Sexual Intercouse: Denies Abdominal Trauma: Not Applicable Patient Complaints: None Time Provider Notified: 09/29/2016 16:12 Provider Notified: EVANGELIST Initial Plan: BPP, IV HYDRATION Datetime: 09/29/2016 15:33 Monitor Mode: External Monitor Mode: External US Datetime: 09/19/2016 20:56 Fall Score: 15 Fall Risk Score Definition: No Risk: No action required Datetime: 09/19/2016 19:33 EGA: 34.2 Datetime: 09/06/2016 15:13 Fall Score: 0 Fall Risk Score Definition: No Risk: No action required Datetime: 09/06/2016 15:12 EGA: 32.3 Datetime: 08/24/2016 01:02 Fall Score: 0 Fall Risk Score Definition: No Risk: No action required Datetime: 08/24/2016 00:17 EGA: 30.4 Datetime: 08/15/2016 14:58 Fall Score: 0 Fall Risk Score Definition: No Risk: No action required Datetime: 08/15/2016 14:57 EGA: 29.2
--- NOTE | 2016-09-29 20:20 | QN ---
Documentation Comment iup 35 weeks DFM vss us wnl nst reactive a/p iup 35 weeks DFM-resolved dc home CARISSA HICKMAN MD Sep 29, 2016 20:20
== END 2016-09-29 18:09 | disposition home or self-care (01) ==
LOC: L-D 15:19 → OBT 15:19
PROVIDERS: ATTEND Obstetrics & Gynecology
DX: O36.8130 Decreased fetal movements, third trimester, not applicable or unspecified (principal); Z3A.35 35 weeks gestation of pregnancy
CPT/HCPCS: 36415; 76818; 96360; G0463; J7120

== ENCOUNTER 2016-10-02 15:57 | Outpatient (CLI) | payer SELFPAY ==
[~2016-10-02] VITALS: Ht 154.9 cm; Wt 79.7 kg
[~2016-10-02 15:57] MED LIST changes: +NITR-58 PO
[2016-10-02 17:09] VITALS: BP 120/68; PULSE 65; RESP 20
--- NOTE | 2016-10-02 17:16 | RADRPT ---
PROCEDURE: OB ultrasound for biophysical profile CLINICAL INDICATION: Biophysical profile. . labor TECHNIQUE: Multiple sonographic images of the pelvis were obtained. Transabdominal views are obta ined. COMPARISON: 09/29/2016 FINDINGS: Single intrauterine gestation. Presentation: Cephalic. Placenta: Anterior. No evidence of placental abruption. No evidence of placenta previa. breathing movement = 2/2 tone = 2/2 motion = 2/2 MALLY = 2/2 MALLY = 9.8 cm heart rate: 135 beats per minute IMPRESSION: Single intrauterine gestation. Biophysical profile 10/24 MALLY = 9.8 cm, previously 9.4 cm. RPTAT: AADD .Jeff Santiago MD, MD Date Time Electronically viewed and signed by .Jeff Santiago MD, on 10/02/2016 17:16 .B/
--- NOTE | 2016-10-02 17:29 | RADRPT ---
PROCEDURE: Obstetrical ultrasound. CLINICAL INDICATION: , evaluation. Pelvic pain. TECHNIQUE: Transabdominal sonographic images of the pelvis are obtained. COMPARISON: 09/29/2016, 09/19/2016 FINDINGS: Single intrauterine gestation. There is a cephalic presentation. Measurements were made in order to determine age. The results are as follows: BPD = 8.98 cm 36 weeks 3 day(s) HC = 32.30 cm 36 weeks 4 day(s) AC = 32.64 cm 36 weeks 4 day(s) FL = 6.59 cm 34 weeks 0 day(s) Heart rate = 126 beats per minute The placenta is anterior. There is no evidence for an abruption or placenta previa. Ovaries are not visualized. IMPRESSION: Single intrauterine gestation of approximately 35 weeks 6 days by ultrasound criteria. [place] estimated weight = 2789 g; 40 percentile for gestational age of 36 weeks 2 days. RPTAT: AADD .Jeff Santiago MD, MD Date Time Electronically viewed and signed by .Jeff Santiago MD, MD on 10/02/2016 17:29 .B/
[2016-10-02 17:36] VITALS: Ht 154.9 cm; Wt 79.7 kg
== END 2016-10-02 18:18 | disposition home or self-care (01) ==
LOC: OBT 15:57 → L-D 15:57 → OBT 18:18
PROVIDERS: ATTEND Obstetrics & Gynecology
DX: O26.893 Other specified pregnancy related conditions, third trimester (principal); Z3A.35 35 weeks gestation of pregnancy; R10.2 Pelvic and perineal pain
CPT/HCPCS: 76815; 76818; G0463

== ENCOUNTER 2016-10-09 16:51 | Outpatient (CLI) | payer SELFPAY ==
[~2016-10-09] VITALS: Ht 154.9 cm; Wt 79.5 kg
[~2016-10-09 16:51] MED LIST changes: -NITR-58 PO
[2016-10-09 17:18] VITALS: BP 108/68; PULSE 86; RESP 20; Ht 154.9 cm; Wt 79.5 kg
--- NOTE | 2016-10-09 19:37 | RADRPT ---
PROCEDURE: US OB biophysical profile. CLINICAL INDICATION: evaluation, vaginal bleeding TECHNIQUE: Multiple sonographic images of the pelvis were obtained. The images were reviewed on a PACS workstation. COMPARISON: No prior studies are available for comparison. FINDINGS: There is a single viable intrauterine gestation. Cardiac activity is present with 148 beats per min [place]. There is a vertex presentation. The placenta is anterior. There is no evidence of placental abruption. There is a normal amount of amniotic fluid with an MALLY = 9.5 cm. Biophysical profile: movement 2/2 tone 2/2. breathing 2/2 MALLY 2/2 Total 10/24 RPTAT: AA . IMPRESSION: Normal biophysical profile. Physician Luciano Date Time Electronically viewed and signed by Physician Luciano on 10/09/2016 19:37 RA/
--- NOTE | 2016-10-10 05:07 | PN ---
Triage Information Date/Time Weeks of Gestation 37w1d : 8 Para: 6 Diabetes: none Hypertention: none Additional information vaginal spotting (pinkish) Objective Vital Signs Date Time Temp Pulse Resp B/P Pulse Ox O2 Delivery O2 Flow Rate FiO2 10/09/16 17:18 98.1 86 20 108/68 Room Air Heart Rate: 140's Contractions: None Exam 1-2/50% -2 membrane intact recheck in 2hrs no change no bleeding seen for more than 2hrs Results/Medications Imaging Results BPP 8 MALLY 9.5 Assessment/Plan IUP 37w1d vaginal spotting not in labor PLAN discharge home with routine labor instructions RTH prRHEA Bolivar MD Oct 10, 2016 05:07
== END 2016-10-09 20:27 | disposition home or self-care (01) ==
LOC: OBT 16:51 → L-D 16:52 → OBT 20:27
PROVIDERS: ATTEND Obstetrics & Gynecology
DX: O46.93 Antepartum hemorrhage, unspecified, third trimester (principal); Z3A.37 37 weeks gestation of pregnancy
CPT/HCPCS: 76818; G0463

== ENCOUNTER 2016-10-15 20:47 | Outpatient (CLI) | payer MEDICAID ==
[~2016-10-15] VITALS: Ht 154.9 cm; Wt 80.7 kg
[2016-10-15 21:02] VITALS: Ht 154.9 cm; Wt 80.7 kg
[2016-10-15 21:03] VITALS: BP 117/66; PULSE 77; RESP 18
[2016-10-15 21:50] LABS: ADD UMIC NO; UR ASCORBIC ACID NEGATIVE (NEGATIVE); UR BILIRUBIN (Dip) NEGATIVE (NEGATIVE); UR BLOOD (Dip) NEGATIVE (NEGATIVE); UR CLARITY CLEAR (CLEAR); UR COLOR STRAW (YELLOW); UR GLUCOSE (Dip) NEGATIVE (NEGATIVE); UR KETONES (Dip) NEGATIVE (NEGATIVE); UR LEUKOCYTE ESTERASE (Dip) NEGATIVE Leu/ul (NEGATIVE); UR NITRITE (Dip) NEGATIVE (NEGATIVE); UR SPECIFIC GRAVITY (Dip) 1.006 (1.003-1.030); UR TOTAL PROTEIN (Dip) NEGATIVE (NEGATIVE); UR UROBILINOGEN (Dip) NEGATIVE (NEGATIVE)
--- NOTE | 2016-10-15 22:56 | RADRPT ---
PROCEDURE: Biophysical profile. CLINICAL INDICATION: Pelvic pain. TECHNIQUE: Multiple sonographic images of the pelvis were obtained with transabdominal technique. COMPARISON: 10/09/2016. FINDINGS: There is a single living intrauterine gestation with the fetus in a vertex position. The placenta i s anterior in location, grade II to III. heart tones of 139 beats per minute are identified. There is normal amniotic fluid volume with an MALLY of 10.0 cm. breathing movements = 2 Gross body movements = 2 tone = 2 Qualitative AFV = 2 IMPRESSION: Biophysical profile 8 out of 8. .Raul Tavarez MD, MD Date Time Electronically viewed and signed by .Raul Tavarez MD, MD on 10/15/2016 22:56 .T/
--- NOTE | 2016-10-16 00:26 | PN ---
Triage Information Date/Time October 16, 2016 Weeks of Gestation 38w 1d : 8 Para: 6 Diabetes: none Hypertention: none Additional information Pt came in complaining of decreased movement and brief pains in her belly every few hours. No bleeding or leaking. PMHx: none. PSHx: C/S x 3. POBHx: x 2. C/S Objective Vital Signs Date Time Temp Pulse Resp B/P Pulse Ox O2 Delivery O2 Flow Rate FiO2 10/15/16 21:03 98.3 77 18 117/66 Heart Rate: 130's Heart Rate Comments Baseline 130 bpm with accels to 170 bpm. No decels. No UC's. Contractions: None Results/Medications Results 24 hrs Laboratory Tests Test 10/15/16 21:00 Urine Color STRAW Urine Clarity CLEAR Urine pH 7.0 Urine Specific [place] 1.006 Urine Ketones NEGATIVE Urine Nitrite NEGATIVE Urine Bilirubin NEGATIVE Urine Urobilinogen NEGATIVE Urine Leukocyte Esterase NEGATIVE Urine Hemoglobin NEGATIVE Urine Glucose NEGATIVE Urine Total Protein NEGATIVE Imaging Results BPP 8/. MALLY 10. Assessment/Plan A: IUP at 38 weeks 1 day. Decreased movement. P:D/C pt home. Pt drank water and vomited but feels much better and feels the baby moving now so declined an IV for IV hydration. F/U with the clinic as scheduled. IAN HERNANDEZ MD Oct 16, 2016 00:25
--- NOTE | 2016-10-16 01:27 | TRIAGE ---
OB Triage Datetime Report Generated by CPN: 10/16/2016 01:26 Datetime: 10/16/2016 00:20 Stage of : OB Triage Datetime: 10/16/2016 00:00 Labor Evaluation Frequency: 0 Monitor Mode: External Heart Rate FHR Baseline Rate: 135 Monitor Mode: External US FHR Baseline Changes: No Baseline Change Variability: Moderate 6-25 bpm Accelerations: 15X15 Decelerations: None Category: Category I Datetime: 10/15/2016 23:00 Labor Evaluation Frequency: 0 Monitor Mode: External Heart Rate FHR Baseline Rate: 135 FHR Baseline Changes: No Baseline Change Variability: Moderate 6-25 bpm Accelerations: 15X15 Decelerations: None Category: Category I Datetime: 10/15/2016 22:00 Labor Evaluation Frequency: 0 Monitor Mode: External Heart Rate FHR Baseline Rate: 135 Monitor Mode: External US FHR Baseline Changes: No Baseline Change Variability: Moderate 6-25 bpm Accelerations: 15X15 Decelerations: None Category: Category I Datetime: 10/15/2016 21:15 Vaginal Exam Dilatation (cms): 1.0 Effacement (%): 30 Station: -3 Exam By: Brent KESSLER RN Vaginal Bleeding: None Cervix, Consistency: Firm Cervix, Position: Posterior Presentation 'A': Cephalic Datetime: 10/15/2016 20:50 Stage of : OB Triage Assessment Type: Triage Time of Arrival: 10/15/2016 20:40 EGA: 38.0 Arrived By: Wheelchair Arrived From: Home Chief Complaint: ABDOMINAL PAIN / DFM/ LEAKING Movement: Decreased Time Contractions Began: 10/15/2016 15:00 Rupture of Membranes: Unsure Vaginal Bleeding: None Vaginal Discharge: Present Recent Sexual Intercouse: Denies Abdominal Trauma: Not Applicable Patient Complaints: None Time Provider Notified: 10/15/2016 21:12 Provider Notified: DR HERNANDEZ Initial Plan: CALL ANNA BULLARD Maternal Assessment Level of Consciousness: Fully Conscious DTR's/Clonus: DTRs 2+; No Clonus Headache: Denies Blurred Vision: No Respiratory Effort: Unlabored; Regular Rhythm; Equal Expansion Breath Sounds, Left: Clear and Equal Breath Sounds, Right: Clear and Equal Nausea/Vomiting: Denies RUQ Epigastric Pain: Denies Lower Extremities Edema: Bilateral Lower Extremities Degree: 1+ Upper Extremities Edema: None Degree: None Facial Edema: None Temperature Route: Oral Fall Risk Assessment History of Falling: (0) No Secondary Diagnosis: (0) No Ambulatory Aid: (0) Bedrest/Nurse Assist IV Therapy: (0) No Gait: (0) Normal/Bedrest/Immobile Mental Status: (0) Oriented to Own Ability Fall Score: 0 Fall Risk Score Definition: No Risk: No action required Monitor Mode: External Monitor Mode: External US Pain Assessment Pain Scale: 2 Pain Presence: Intermittent Pain Type: Cramping Datetime: 10/09/2016 20:31 Time of Arrival: 10/15/2016 20:51 EGA: 38.0 Arrived By: Wheelchair Arrived From: Home Chief Complaint: ABDOMINAL PAIN/ DFM/ LEAKING Movement: Decreased Time Contractions Began: 10/15/2016 15:00 Rupture of Membranes: Unsure Vaginal Bleeding: None Vaginal Discharge: Present Recent Sexual Intercouse: Denies Patient Complaints: None Provider Notified: DR HERNANDEZ Initial Plan: CALL ANNA BULLARD Datetime: 10/09/2016 20:15 Contraction Comments: TOCO REMOVED Comments: US REMOVED Datetime: 10/09/2016 20:03 Labor Evaluation Frequency: 0 Monitor Mode: External Resting Tone [place]: Relaxed Contraction Comments: PT DENIES FEELING ANY CONTRACTIONS AT THIS TIME Heart Rate FHR Baseline Rate: 135 Monitor Mode: External US Variability: Moderate 6-25 bpm Accelerations: 15X15 Decelerations: None Comments: SOME LOSS OF CONTACT DUE TO PT MOVING TO SIDE Datetime: 10/09/2016 20:00 Vaginal Exam Dilatation (cms): 1.5 Effacement (%): 50 Station: -2 Exam By: EM Membrane Status: Intact Datetime: 10/09/2016 19:20 Assessment Type: Ongoing Assessment Maternal Assessment Level of Consciousness: Fully Conscious DTR's/Clonus: DTRs 2+; No Clonus Headache: Denies Blurred Vision: No Respiratory Effort: Unlabored; Regular Rhythm; Equal Expansion Breath Sounds, Left: Clear and Equal Breath Sounds, Right: Clear and Equal Nausea/Vomiting: Denies RUQ Epigastric Pain: Denies Lower Extremities Edema: None Degree: None Upper Extremities Edema: None Degree: None Facial Edema: None Fall Risk Assessment History of Falling: (0) No Secondary Diagnosis: (0) No Ambulatory Aid: (0) Bedrest/Nurse Assist IV Therapy: (0) No Gait: (0) Normal/Bedrest/Immobile Mental Status: (0) Oriented to Own Ability Fall Score: 0 Fall Risk Score Definition: No Risk: No action required Datetime: 10/09/2016 18:47 Labor Evaluation Frequency: X3 Duration (sec)2399: 60 Quality: Mild Pattern: Normal: <= 5 Contractions in 10 Minutes Resting Tone [place]: Relaxed Heart Rate FHR Baseline Rate: 140 Monitor Mode: External US FHR Baseline Changes: No Baseline Change Variability: Moderate 6-25 bpm Accelerations: 15X15 Decelerations: None Category: Category I Pain Assessment Pain Scale: 0 Pain Presence: None/Denies Pain Type: N/A Pain Goal: 0 Datetime: 10/09/2016 18:17 Labor Evaluation Frequency: X2 Monitor Mode: External Duration (sec)2399: 60 Quality: Mild Pattern: Normal: <= 5 Contractions in 10 Minutes Resting Tone [place]: Relaxed Heart Rate FHR Baseline Rate: 140 Monitor Mode: External US FHR Baseline Changes: No Baseline Change Variability: Moderate 6-25 bpm Accelerations: 15X15 Decelerations: None Category: Category I Pain Assessment Pain Scale: 0 Pain Presence: None/Denies Pain Type: N/A Pain Goal: 0 Datetime: 10/09/2016 18:09 Vaginal Exam Dilatation (cms): 1.5 Effacement (%): 50 Station: -2 Exam By: MAY Vaginal Bleeding: None Cervix, Consistency: Soft Cervix, Position: Midposition Presentation 'A': Cephalic Datetime: 10/09/2016 17:46 Labor Evaluation Frequency: X3 Monitor Mode: External Duration (sec)2399: 40 Quality: Mild Pattern: Normal: <= 5 Contractions in 10 Minutes Resting Tone [place]: Relaxed Heart Rate FHR Baseline Rate: 140 Monitor Mode: External US FHR Baseline Changes: No Baseline Change Variability: Moderate 6-25 bpm Accelerations: 15X15 Decelerations: None Category: Category I Pain Assessment Pain Scale: 0 Pain Presence: None/Denies Pain Type: N/A Pain Goal: 0 Membrane Status: Intact Datetime: 10/09/2016 17:15 Stage of : OB Triage Assessment Type: Triage Maternal Assessment Level of Consciousness: Fully Conscious DTR's/Clonus: DTRs 2+; No Clonus Headache: Denies Blurred Vision: No Respiratory Effort: Unlabored; Regular Rhythm; Equal Expansion Nausea/Vomiting: Denies RUQ Epigastric Pain: Denies Lower Extremities Edema: None Degree: None Upper Extremities Edema: None Degree: None Facial Edema: None Fall Risk Assessment History of Falling: (0) No Secondary Diagnosis: (0) No Ambulatory Aid: (0) Bedrest/Nurse Assist IV Therapy: (0) No Gait: (0) Normal/Bedrest/Immobile Mental Status: (0) Oriented to Own Ability Fall Score: 0 Fall Risk Score Definition: No Risk: No action required Monitor Mode: External Monitor Mode: External US Pain Assessment Pain Scale: 0 Pain Presence: None/Denies Pain Type: N/A Pain Goal: 0 Datetime: 10/09/2016 17:12 Time of Arrival: 10/09/2016 16:45 EGA: 37.1 Arrived By: Ambulatory Arrived From: Home Chief Complaint: BLEEDING WHEN SHE WIPES Movement: Present Contractions: Denies/Absent Rupture of Membranes: Denies Vaginal Bleeding: None Vaginal Discharge: Present Recent Sexual Intercouse: Denies Abdominal Trauma: Not Applicable Patient Complaints: Other Initial Plan: EFM; BPP; VE Datetime: 10/02/2016 18:02 Labor Evaluation Frequency: IRREG Monitor Mode: External Duration (sec)2399: 50-80 Quality: Moderate Pattern: Normal: <= 5 Contractions in 10 Minutes Resting Tone [place]: Relaxed Heart Rate FHR Baseline Rate: 145 Monitor Mode: External US Variability: Moderate 6-25 bpm Accelerations: 15X15 Decelerations: None Category: Category I Datetime: 10/02/2016 17:35 Labor Evaluation Frequency: 0 Monitor Mode: External Duration (sec)2399: 0 Resting Tone [place]: Relaxed Contraction Comments: no uc's noted Heart Rate FHR Baseline Rate: 145 Monitor Mode: External US Variability: Moderate 6-25 bpm Accelerations: 15X15 Decelerations: None Category: Category I Comments: nst reative for gestational age Datetime: 10/02/2016 17:15 Assessment Type: Triage Maternal Assessment Level of Consciousness: Fully Conscious DTR's/Clonus: DTRs 2+; No Clonus Headache: Denies Blurred Vision: No Respiratory Effort: Unlabored; Regular Rhythm; Equal Expansion Breath Sounds, Left: Clear and Equal Breath Sounds, Right: Clear and Equal Nausea/Vomiting: Denies RUQ Epigastric Pain: Denies Lower Extremities Edema: None Degree: None Upper Extremities Edema: None Degree: None Facial Edema: None Fall Risk Assessment History of Falling: (0) No Secondary Diagnosis: (0) No Ambulatory Aid: (0) Bedrest/Nurse Assist IV Therapy: (0) No Gait: (0) Normal/Bedrest/Immobile Mental Status: (0) Oriented to Own Ability Fall Score: 0 Fall Risk Score Definition: No Risk: No action required Datetime: 10/02/2016 17:14 Vaginal Exam Dilatation (cms): 1.0 Effacement (%): 40 Station: -3 Exam By: HA ELENA Vaginal Bleeding: None Cervix, Consistency: Moderate Presentation 'A': Cephalic Datetime: 10/02/2016 17:00 Assessment Type: Triage Maternal Assessment Level of Consciousness: Fully Conscious DTR's/Clonus: DTRs 2+; No Clonus Headache: Denies Blurred Vision: No Respiratory Effort: Unlabored; Regular Rhythm; Equal Expansion Breath Sounds, Left: Clear and Equal Breath Sounds, Right: Clear and Equal Nausea/Vomiting: Denies RUQ Epigastric Pain: Denies Lower Extremities Edema: None Degree: None Upper Extremities Edema: None Degree: None Facial Edema: None Fall Risk Assessment History of Falling: (0) No Secondary Diagnosis: (0) No Ambulatory Aid: (0) Bedrest/Nurse Assist IV Therapy: (0) No Gait: (0) Normal/Bedrest/Immobile Mental Status: (0) Oriented to Own Ability Fall Score: 0 Fall Risk Score Definition: No Risk: No action required Datetime: 10/02/2016 16:34 Time of Arrival: 10/02/2016 15:47 EGA: 36.1 Arrived By: Ambulatory Arrived From: Home Chief Complaint: SPOTTING Movement: Present Contractions: Denies/Absent Rupture of Membranes: Denies Vaginal Bleeding: None Vaginal Discharge: Denies Recent Sexual Intercouse: Denies Abdominal Trauma: Not Applicable Time Provider Notified: 10/02/2016 16:00 Provider Notified: SHAMSIAN Initial Plan: SVE, BPP, EFW Datetime: 09/29/2016 15:40 Fall Score: 0 Fall Risk Score Definition: No Risk: No action required Datetime: 09/29/2016 15:38 EGA: 35.5 Datetime: 09/19/2016 20:56 Fall Score: 15 Fall Risk Score Definition: No Risk: No action required Datetime: 09/19/2016 19:33 EGA: 34.2 Datetime: 09/06/2016 15:13 Fall Score: 0 Fall Risk Score Definition: No Risk: No action required Datetime: 09/06/2016 15:12 EGA: 32.3 Datetime: 08/24/2016 01:02 Fall Score: 0 Fall Risk Score Definition: No Risk: No action required Datetime: 08/24/2016 00:17 EGA: 30.4 Datetime: 08/15/2016 14:58 Fall Score: 0 Fall Risk Score Definition: No Risk: No action required Datetime: 08/15/2016 14:57 EGA: 29.2
== END 2016-10-16 00:30 | disposition home or self-care (01) ==
LOC: OBT 20:47 → L-D 20:47 → OBT 10-16 00:30
PROVIDERS: ATTEND Obstetrics & Gynecology
DX: O36.8130 Decreased fetal movements, third trimester, not applicable or unspecified (principal); Z3A.38 38 weeks gestation of pregnancy
CPT/HCPCS: 76818; 81003; 87086; Z7500; G0463

== ENCOUNTER 2016-10-19 00:59 | Inpatient (IN) | payer MEDICAID ==
[~2016-10-19] VITALS: Ht 154.9 cm; Wt 81.1 kg
[2016-10-19 01:12] VITALS: Ht 154.9 cm; Wt 81.1 kg
[2016-10-19] MEDS ORDERED: OXYTOCIN 30 UNITS/LR 500 ML IV PRN ×2 (02:30→18:30)
[2016-10-19] MEDS ORDERED: OXYTOCIN 30 UNITS/LR 500 ML IV SCH (02:30)
[2016-10-19] MEDS ORDERED: METHYLERGONOVINE 0.2 MG INJ IM PRN ×2 (02:30→18:30)
[2016-10-19] MEDS ORDERED: MISOPROSTOL 200 MCG TAB PR PRN ×2 (02:30→18:30)
[2016-10-19] MEDS ORDERED: CARBOPROST 250 MCG INJ IM PRN ×2 (02:30→18:30)
[2016-10-19] MEDS ORDERED: LACTATED RINGER'S 1,000 ML IV PRN (02:30)
[2016-10-19 04:11] LABS: BASOPHILS % 0.1 % (0.0-2.0); EOSINOPHILS # 0.1 10^3/ul (0.0-0.5); EOSINOPHILS % 0.8 % (0.0-7.0); HEMATOCRIT 26.6 % (37.0-47.0); HEMOGLOBIN 8.7 g/dl (12.0-16.0); MEAN CORPUSCULAR HGB CONC 32.7 g/dl (32.0-37.0); MEAN CORPUSCULAR VOLUME 79.4 fl (82.0-101.0); MEAN PLATELET VOLUME 12.3 fl (7.4-10.4); MONOCYTE # 0.7 10^3/ul (0.3-0.9); MONOCYTES % 7.1 % (0.0-11.0); NEUTROPHIL # 6.3 10^3/ul (1.6-7.5); NEUTROPHILS % 68.9 % (39.0-77.0); NUCLEATED RED BLOOD CELLS% 0.2 /100WBC (0.0-0.0); PLATELET COUNT 127 10^3/UL (140-415); RED BLOOD COUNT 3.35 10^6/ul (4.20-5.40); RED CELL DISTRIBUTION WIDTH 18.6 % (11.5-14.5); WHITE BLOOD COUNT 9.1 10^3/ul (4.8-10.8)
[2016-10-19 04:41] LABS: INR 0.91; PARTIAL THROMBOPLASTIN TIME 26.5 Sec (25.0-35.0); PROTIME 12.2 Sec (12.2-14.2)
[2016-10-19 06:43] LABS: ADD UMIC YES; UR ASCORBIC ACID NEGATIVE (NEGATIVE); UR BACTERIA FEW /HPF (NONE SEEN); UR BILIRUBIN (Dip) NEGATIVE (NEGATIVE); UR BLOOD (Dip) NEGATIVE (NEGATIVE); UR CLARITY SLIGHTLY CLOUDY (CLEAR); UR COLOR YELLOW (YELLOW); UR GLUCOSE (Dip) NEGATIVE (NEGATIVE); UR KETONES (Dip) 1+ mg/dL (NEGATIVE); UR LEUKOCYTE ESTERASE (Dip) 1+ Leu/ul (NEGATIVE); UR MUCUS FEW /HPF (NONE SEEN); UR NITRITE (Dip) NEGATIVE (NEGATIVE); UR RBC 10 /HPF (0-5); UR SPECIFIC GRAVITY (Dip) 1.013 (1.003-1.030); UR SQUAMOUS EPITHELIAL CELL FEW /HPF (FEW); UR TOTAL PROTEIN (Dip) NEGATIVE (NEGATIVE); UR UROBILINOGEN (Dip) NEGATIVE (NEGATIVE)
[2016-10-19] MEDS ORDERED: METHYLERGONOVINE 0.2 MG INJ ONE (07:00)
[2016-10-19 07:02] LABS: BARBITURATES Negative (NEGATIVE); BENZODIAZEPINES Negative (NEGATIVE); CANNABINOIDS Negative (NEGATIVE); COCAINE Negative (NEGATIVE); OPIATES Negative (NEGATIVE)
[2016-10-19] MEDS ORDERED: LACTATED RINGER'S 1,000 ML IV ONE (09:57)
[2016-10-19] MEDS ORDERED: ONDANSETRON 4 MG INJ IV ONE (10:00)
[2016-10-19] MEDS ORDERED: CITRIC ACID/NA CITRATE 30 ML CUP PO ONE (10:00)
[2016-10-19] MEDS ORDERED: FENTAnyl 50 MCG/ML VIAL ONE (10:46)
[2016-10-19] MEDS ORDERED: morphine SULFATE/PF (10 MG/10 ML) INJ ONE (10:46)
[2016-10-19] MEDS ORDERED: METOCLOPRAMIDE 10 MG INJ ONE (10:56)
[2016-10-19] MEDS ORDERED: CEFAZOLIN 1 GM INJ ONE (10:56)
[2016-10-19] MEDS ORDERED: PHENYLephrine (100 MCG/ML) 5ML SYG ONE ×2 (10:58→11:28)
[2016-10-19] MEDS: CEFAZOLIN 2 GM/50 ML (PMX) 50 ML IV SCH ×2 (10:59→11:30)
[2016-10-19] MEDS ORDERED: SOD CHLORIDE 0.9% 1,000 ML IV SCH (11:00)
[2016-10-19] MEDS ORDERED: EPHEDrine SULFATE 50 MG/5 ML SYG ONE (11:23)
[2016-10-19] MEDS ORDERED: ONDANSETRON 4 MG INJ IV PRN (11:30)
[2016-10-19] MEDS ORDERED: NALOXONE (0.4 MG/ML) INJ IV PRN (11:30)
[2016-10-19] MEDS ORDERED: NALBUPHINE HCL (10 MG/1 ML) INJ IV PRN (11:30)
[2016-10-19] MEDS ORDERED: morphine 4 MG/ML VIAL IV PRN ×2 (11:30)
[2016-10-19] MEDS ORDERED: DIPHENHYDRAMINE 50 MG INJ IV PRN (11:30)
[2016-10-19] MEDS ORDERED: TRIMETHOBENZAMIDE 100 MG/ML VIAL IM PRN (11:30)
[2016-10-19] MEDS ORDERED: VASOPRESSIN 20 UNITS INJ ONE (11:36)
--- NOTE | 2016-10-19 12:28 | HP ---
Date/Time of Note Date/Time of Note DATE: 10/19/16 TIME: 12:12 OB - History Hx of Present Free Text/Dictation 31 years old female C4 PET 1 SAB 1 IAB 1L6 admitted to the hospital at 38 weeks and 4 days of with a history of 3 previous section and requests for bilateral tubal ligation at the time of her section in active labor. This patient has been under the care of the [facility] her was not complicated with gestational diabetes -induced hypertension Chief Complaint: 38 weeks 4 days history of 3 previous active requests for tubal l Estimated Due Date: Oct 29, 2016 : 8 Para: 5 Spontaneous : 1 Therapeutic : 1 Care: Limited Care Ultrasounds: Normal mid trimester US Obstetrical Complications: None Past Family/Social History * Past Medical, Surgical, Family and Obstetric Histories reviewed from chart. Rubella: immune RPR/VDRL: Negative GBS Status: Negative OB Admission Exam Physical Exam HEENT: WNL Heart: Rhythm Normal Lungs: Clear, Equal Abdomen: WNL Extremities: Normal Reflexes: Normal Cervical Dilatation: 1cm Effacement: 50% Station: -2 Membranes: Intact Accelerations: Accelerations Present Decelerations: No Decelerations Varibility: Moderate Contractions on Admission: 6-10 Minutes Apart Intensity: Moderate Last 72 hours Lab Results CBC & BMP 10/19/16 03:30 OB Assessment/Plan Reason for admission: other (31 years old 8 para 5 history of 3 previous request for tubal ligation in active labor failure rate of tubal ligation failure to conceive in the future risk of ectopic or among the complication of tubal ligation also she was informed of complication of surgery including bowel bladder injury wound infection #2 and she is willing to go ahead with the procedure) DM BLANCA MD Oct 19, 2016 12:23
--- NOTE | 2016-10-19 12:42 | OPR ---
Operative Report Planned Procedure Free Text/Dictation 31 years old 38 weeks and 4 day history of 3 previous request for bilateral tubal ligation admitted in active labor Procedure date Oct 19, 2016 Procedure(s) Repeat bilateral tubal ligation Performed by: DM BLANCA MD Assisting provider: ALEAH CHAPPELL MD Anesthesiologist: AMERICA WOODS MD Pre-procedure diagnosis 38-1/2 weeks history of 3 previous request for tubal ligation in labor Anesthesia Type: spinal Procedure Description Under satisfactory [spine] anesthesia, the patient was prepped and draped and placed in a supine position, tilted to the left. Pfannenstiel incision was made , carried through the subcutaneous tissue. Bleeders brought under control with electrocautery. Fascia incised to the length of the incision. Rectus muscles from the fascia, divided midline. Peritoneum exposed, entered through a transverse incision. Exploration of abdomen revealed gravid uterus with 2 enlarged ovaries contain multiple follicular cysts less than 3-4 mm in size. Bladder flap was developed. Transverse incision was made in the lower segment of the uterus. Amniotic sac ruptured. Clear [] amniotic fluid noted. Live baby boy was delivered from unengaged vertex with a nuchal cord 1 [] Nasal oropharyngeal suction was performed. The baby was handed to the team for immediate attention. The placenta was delivered manually intact. Uterine cavity was cleaned with wet sponge and drainage established. Bilateral tubal ligation performed by identifying the fimbria of the right fallopian tube suture material used #0 plain catgut was reinforced with the same suture material that segment of the tube sent to the pathology the same procedure to the opposite, uterus closed in 2 layers using Monocryl [] #1 in continuous fashion. Sponge needle and instrument reported to be correct peritoneal cavity irrigated with warm saline. Sponge, needle and instrument count reported to be correct. Abdominal peritoneum closed with [2-0 chromic catgut] continuously. Rectus muscle approximated with 0 chromic catgut fascia closed with #1 PDS [], subcutaneous tissue approximated with several interrupted 2-0 chromic catgut skin closed with binu. Estimated blood loss [600]mL. Urine bag contained 200 mL of clear urine patient tolerated procedure well transferred to recovery room in good condition. Post-Procedure Findings: Live Baby boy 8 and9 Complications: None Pt Condition post procedure: stable Physician Certification I, the undersigned physician, hereby certify that I have discussed the procedure described in this consent form with this patient (or the patient's legal employment representative), including: * The risk and benefits of the procedure; * Any adverse reactions that may reasonably be expected to occur; * Any alternative efficacious methods of treatment which may be medically viable ; * The potential problems that may occur during recuperation; * Potential for blood transfusion and associated risks/benefits; and * Any research or economic interest I may have regarding this treatment. I further certify that the patient/legally responsible person was encouraged to ask question and that all questions were answered. DM BLANCA MD Oct 19, 2016 12:40
[2016-10-19 17:03] LABS: BASOPHILS % 0.2 % (0.0-2.0); EOSINOPHILS % 0.1 % (0.0-7.0); HEMATOCRIT 36.2 % (37.0-47.0); HEMOGLOBIN 11.7 g/dl (12.0-16.0); LYMPHOCYTES # 1.5 10^3/ul (0.8-2.9); LYMPHOCYTES % 11.9 % (15.0-51.0); MEAN CORPUSCULAR HEMOGLOBIN 26.3 pg (29.0-33.0); MEAN CORPUSCULAR HGB CONC 32.3 g/dl (32.0-37.0); MEAN CORPUSCULAR VOLUME 81.3 fl (82.0-101.0); MONOCYTE # 0.6 10^3/ul (0.3-0.9); MONOCYTES % 5.1 % (0.0-11.0); NEUTROPHIL # 10.3 10^3/ul (1.6-7.5); NEUTROPHILS % 82.1 % (39.0-77.0); PLATELET COUNT 131 10^3/UL (140-415); RED BLOOD COUNT 4.45 10^6/ul (4.20-5.40); RED CELL DISTRIBUTION WIDTH 19.1 % (11.5-14.5); WHITE BLOOD COUNT 12.6 10^3/ul (4.8-10.8)
[2016-10-19 17:20] VITALS: BP 116/65; PULSE 64; RESP 20
[2016-10-19 17:35] VITALS: BP 103/55; PULSE 70; RESP 19
[2016-10-19] MEDS ORDERED: LANOLIN 7 GM TUBE TOP PRN (18:30)
[2016-10-19] MEDS ORDERED: ACETAMINOPHEN/CODEINE #3 TAB PO PRN ×2 (18:30)
[2016-10-19] MEDS ORDERED: CEFAZOLIN 1 GM/50 ML (PMX) 50 ML IVPB SCH (18:30)
[2016-10-19] MEDS ORDERED: OXYCODONE/ACETAMINOPHEN (5/325) TAB PO PRN (18:30)
[2016-10-19 20:30] VITALS: BP 109/54; PULSE 70; RESP 18
[2016-10-19] MEDS: OXYTOCIN 30 UNITS/LR 500 ML IV SCH (20:43)
[2016-10-19] MEDS: KETOROLAC 30 MG INJ IV PRN (23:21)
[2016-10-20 00:26] VITALS: BP 98/51; PULSE 78; RESP 18
[2016-10-20] MEDS: OXYTOCIN 30 UNITS/LR 500 ML IV SCH ×2 (00:34→02:21)
[2016-10-20 04:29] VITALS: BP 95/54; PULSE 76; RESP 18
[2016-10-20] MEDS ORDERED: LACTATED RINGER'S 1,000 ML IV SCH (04:30)
[2016-10-20 07:52] VITALS: BP 88/55; PULSE 82; RESP 19
[2016-10-20] MEDS: KETOROLAC 30 MG INJ IV PRN (07:52)
[2016-10-20] MEDS: SENNA/DOCUSATE NA (8.6MG/50MG) TAB PO SCH ×2 (08:40→23:08)
[2016-10-20 11:27] LABS: ABNORMAL IP MESSAGE 1; BASOPHILS % 0.1 % (0.0-2.0); EOSINOPHILS % 0.1 % (0.0-7.0); HEMATOCRIT 31.9 % (37.0-47.0); HEMOGLOBIN 10.4 g/dl (12.0-16.0); LYMPHOCYTES # 1.8 10^3/ul (0.8-2.9); LYMPHOCYTES % 12.4 % (15.0-51.0); MEAN CORPUSCULAR HGB CONC 32.6 g/dl (32.0-37.0); MEAN CORPUSCULAR VOLUME 79.8 fl (82.0-101.0); MEAN PLATELET VOLUME 11.9 fl (7.4-10.4); MONOCYTES % 6.4 % (0.0-11.0); NEUTROPHIL # 11.9 10^3/ul (1.6-7.5); NEUTROPHILS % 80.5 % (39.0-77.0); PLATELET COUNT 124 10^3/UL (140-415); RED CELL DISTRIBUTION WIDTH 19.8 % (11.5-14.5); WHITE BLOOD COUNT 14.8 10^3/ul (4.8-10.8)
[2016-10-20 11:28] LABS: POSITIVE DIFF @See below
[2016-10-20] MEDS: IBUPROFEN 600 MG TAB PO SCH ×2 (12:59→18:14)
--- NOTE | 2016-10-20 15:06 | PN ---
Date/Time of Note Date/Time of Note DATE: 10/20/16 TIME: 15:03 OB Subjective Subjective Subjective Post day 1 Afebrile Vital signs are stable Abdomen soft incision dry bowel sounds present lochia moderate extremities normal ambulation encouraged DM BLANCA MD Oct 20, 2016 15:06
[2016-10-20 16:14] VITALS: BP 103/56; PULSE 73; RESP 18
[2016-10-20 20:30] VITALS: BP 107/60; PULSE 75; RESP 18
[2016-10-20] MEDS: OXYCODONE/ACETAMINOPHEN (5/325) TAB PO PRN (23:09)
[2016-10-21 05:00] VITALS: BP 90/56; PULSE 67; RESP 19
[2016-10-21] MEDS: IBUPROFEN 600 MG TAB PO SCH ×5 (05:58→23:16)
[2016-10-21 07:50] VITALS: BP 97/52; PULSE 70; RESP 18
[2016-10-21 12:00] VITALS: BP 100/60; PULSE 72; RESP 18
[2016-10-21] MEDS: SENNA/DOCUSATE NA (8.6MG/50MG) TAB PO SCH ×2 (12:29→21:05)
--- NOTE | 2016-10-21 14:01 | PN ---
Date/Time of Note Date/Time of Note DATE: 10/21/16 TIME: 14:00 OB Subjective Subjective Subjective October [id number] Post C section day 2 Doing Well Afebrile Ambulatory Chest Clear Breasts are soft , Nipples are intact Abdomen is soft Fundus is firm Moderate amount of lochia Incision is clean ,No evidence of infection No calf tenderness No ankle edema Current Medications Medications (Trade) Dose Ordered Sig/Mónica Route PRN Reason Start Time Stop Time Status Last Admin Dose Admin Lactated Ringer's 1,000 ml @ 125 mls/hr Q8H PRN IV HYDRATION 10/19/16 02:30 10/19/16 18:25 DC 10/19/16 04:16 Cefazolin Sodium/ Dextrose 50 ml @ 100 mls/hr ONCE IV 10/19/16 02:30 10/19/16 18:25 DC 10/19/16 10:59 Oxytocin/Lactated Ringer's 500 ml @ 125 mls/hr ONCE IV 10/19/16 02:30 10/19/16 18:25 DC 10/19/16 16:38 Oxytocin/Lactated Ringer's 500 ml @ 0 mls/hr ONCE PRN IV For Hemorrhage Management 10/19/16 02:30 10/19/16 18:26 DC Methylergonovine Maleate (Methergine) 0.2 mg ONCE PRN IM VAGINAL BLEEDING 10/19/16 02:30 10/19/16 18:26 DC Carboprost Tromethamine (Hemabate) 250 mcg ONCE PRN IM VAGINAL BLEEDING 10/19/16 02:30 10/19/16 18:26 DC Misoprostol 1000 mcg 1,000 mcg ONCE PRN LA VAGINAL BLEEDING 10/19/16 02:30 10/19/16 18:26 DC Lactated Ringer's (Lr) 1,000 ml @ 1,000 mls/hr Q1H ONCE IV 10/19/16 09:57 10/19/16 10:56 DC 10/19/16 10:24 Ondansetron HCl (Zofran Inj) 4 mg pre-procedure ONCE IV 10/19/16 10:00 10/19/16 10:01 DC 10/19/16 10:31 Citric Acid/ Sodium Citrate 30 ml 30 ml PRE-OP ONCE PO 10/19/16 10:00 10/19/16 10:01 DC 10/19/16 10:29 Sodium Chloride (NS) 1,000 ml @ 100 mls/hr Q10H IV 10/19/16 11:00 10/19/16 18:26 DC 10/19/16 10:43 Morphine Sulfate (Duramorph) 10 mg STK-MED ONCE .ROUTE 10/19/16 10:46 10/19/16 10:47 DC Fentanyl (Sublimaze) 100 mcg STK-MED ONCE .ROUTE 10/19/16 10:46 10/19/16 10:47 DC Cefazolin Sodium (Ancef) 1 gm STK-MED ONCE .ROUTE 10/19/16 10:56 10/19/16 10:57 DC Metoclopramide HCl (Reglan) 10 mg STK-MED ONCE .ROUTE 10/19/16 10:56 10/19/16 10:57 DC Phenylephrine HCl (Napoleon-Synephrine Inj Syg) 500 mcg STK-MED ONCE .ROUTE 10/19/16 10:58 10/19/16 10:59 DC Ephedrine Sulfate 50 mg STK-MED ONCE .ROUTE 10/19/16 11:23 10/19/16 11:24 DC Phenylephrine HCl (Napoleon-Synephrine Inj Syg) 500 mcg STK-MED ONCE .ROUTE 10/19/16 11:28 10/19/16 11:29 DC Naloxone HCl (Narcan) 0.1 mg Q2M PRN IV FOR RESP RATE 8 OR LESS 10/19/16 11:30 10/20/16 10:53 DC Ketorolac Tromethamine (Toradol) 30 mg Q6H PRN IV PAIN 10/19/16 11:30 10/20/16 10:53 DC 10/20/16 07:52 Morphine Sulfate (morphine) 2 mg Q3H PRN IV PAIN LEVEL 1-5 10/19/16 11:30 10/20/16 10:53 DC Morphine Sulfate (morphine) 4 mg Q3H PRN IV PAIN LEVEL 6-10 10/19/16 11:30 10/20/16 10:53 DC Diphenhydramine HCl (Benadryl) 25 mg Q6H PRN IV ITCHING 10/19/16 11:30 10/20/16 10:53 DC Nalbuphine HCl (Nubain) 5 mg ONCE PRN IV ITCHING 10/19/16 11:30 10/20/16 10:53 DC Ondansetron HCl (Zofran Inj) 4 mg Q6H PRN IV NAUSEA AND/OR VOMITING 10/19/16 11:30 10/20/16 10:53 DC Trimethobenzamide HCl (Tigan) 200 mg Q6H PRN IM NAUSEA AND/OR VOMITING 10/19/16 11:30 10/20/16 10:53 DC Miscellaneous Information (* Miscellaneous Pharmacy Order) Duramorph: 0.2 mg Spi... GIVEN XX 10/19/16 11:30 Vasopressin (Pitressin) 20 unit STK-MED ONCE .ROUTE 10/19/16 11:36 10/19/16 11:37 DC Acetaminophen/ Codeine Phosphate (Tylenol No.3) 1 tab Q4H PRN PO PAIN LEVEL 4-6 10/19/16 18:30 Acetaminophen/ Codeine Phosphate (Tylenol No.3) 2 tab Q4H PRN PO PAIN LEVEL 7-10 10/19/16 18:30 Oxycodone/ Acetaminophen (Percocet (5/ 325)) 1 tab Q4H PRN PO PAIN LEVEL 4-6 10/19/16 18:30 Oxycodone/ Acetaminophen (Percocet (5/ 325)) 2 tab Q4H PRN PO PAIN LEVEL 7-10 10/19/16 18:30 10/20/16 23:09 Ibuprofen (Motrin) 600 mg Q6 PO 10/20/16 12:00 10/21/16 12:30 Simethicone (Mylicon) 160 mg Q8H PRN PO DISTENSION/GAS/BLOATING 10/19/16 18:30 Senna/Docusate Sodium (Senokot-S) 1 tab BID PO 10/20/16 09:00 10/21/16 12:29 Lanolin (Jyz-U-Attidk) 1 applic BEDSIDE MEDICATION PRN TOP BEDSIDE FOR DANIEL TO NIPPLES 10/19/16 18:30 Diphtheria/ Tetanus/Acell Pertussis 0.5 ml 0.5 ml ONCE ONCE IM* 10/22/16 09:00 10/22/16 09:01 Oxytocin/Lactated Ringer's 500 ml @ 0 mls/hr ONCE PRN IV For Hemorrhage Management 10/19/16 18:30 Methylergonovine Maleate (Methergine) 0.2 mg ONCE PRN IM VAGINAL BLEEDING 10/19/16 18:30 Carboprost Tromethamine (Hemabate) 250 mcg ONCE PRN IM VAGINAL BLEEDING 10/19/16 18:30 Misoprostol 1000 mcg 1,000 mcg ONCE PRN LA VAGINAL BLEEDING 10/19/16 18:30 Cefazolin Sodium 50 ml @ 100 mls/hr ONCE IVPB 10/19/16 18:30 10/19/16 18:59 DC 10/19/16 19:10 Oxytocin/Lactated Ringer's 500 ml @ 125 mls/hr Q4H IV 10/19/16 18:21 10/20/16 04:30 DC 10/20/16 00:34 Methylergonovine Maleate 0.2 mg 0.2 mg STK-MED ONCE .ROUTE 10/19/16 07:00 10/19/16 21:32 DC Lactated Ringer's (Lr) 1,000 ml @ 125 mls/hr Q8H IV 10/20/16 04:30 10/20/16 12:00 DC 10/20/16 04:36 New born is doing well, Breast feeding ALEAH CHAPPELL MD Oct 21, 2016 14:01
[2016-10-21 16:40] VITALS: BP 116/57; PULSE 80; RESP 18
[2016-10-21 20:15] VITALS: BP 107/65; PULSE 74; RESP 18
[2016-10-22] MEDS: OXYCODONE/ACETAMINOPHEN (5/325) TAB PO PRN (01:10)
[2016-10-22] MEDS: IBUPROFEN 600 MG TAB PO SCH ×2 (06:19→11:35)
[2016-10-22 08:09] VITALS: BP 103/67; PULSE 63
[2016-10-22] MEDS: SENNA/DOCUSATE NA (8.6MG/50MG) TAB PO SCH (08:58)
[2016-10-22] MEDS ORDERED: DIPHTH/TET/ACEL PERTUSS (ADULT) 0.5 ML VIAL IM* ONE (09:00)
--- NOTE | 2016-10-22 13:02 | DS ---
Date/Time of Note Date/Time of Note DATE: 10/22/16 TIME: 12:59 Discharge Summary Admission/Discharge Info Admit Date/Time Oct 19, 2016 at 02:30 Discharge Date/Time October 22, 2016 at 1255 Discharge Diagnosis Post day 3 Patient Condition: Good Procedures Repeat bilateral tubal ligation Hx of Present Illness Term history of previous request for bilateral tubal ligation at the time of section Hospital Course Satisfactory uneventful Home Meds Reported Medications Multivit/Min/Fol Ac/Iron/Pren* ( S*) 1 Tab Tab, 1 TAB PO DAILY, TAB 08/15/16 Follow-up Plan Appointment in clinic for post follow-up in 4 days post instructions given patient received a prescription of Motrin 600 mg 1 tablet every 6 hours and Tylenol 3 #30 1 tablet every 6 hours as needed Primary Care Provider Care Physician No Primary Time spent on discharge: < 30 minutes DM BLANCA MD Oct 22, 2016 13:02
== END 2016-10-22 15:32 | disposition home or self-care (01) | DRG 766 ==
LOC: OBT 00:59 → L-D 01:00 → OBT 02:30 → L-D 10:38 → PP1 17:32
PROVIDERS: ADMIT Obstetrics & Gynecology; ATTEND Obstetrics & Gynecology
PROC: 0UT70ZZ Resection of Bilateral Fallopian Tubes, Open Approach (ICD-10-PCS; 2016-10-19)
PROC: 10D00Z1 Extraction of Products of Conception, Low, Open Approach (ICD-10-PCS; principal; 2016-10-19 11:15)
DX: O82 Encounter for cesarean delivery without indication (principal); Z37.0 Single live birth; O34.211 Maternal care for low transverse scar from previous cesarean delivery; Z3A.38 38 weeks gestation of pregnancy
CPT/HCPCS: 36430; 80307; 81001; 84112; 85025; 85610; 85730; 86592; 86850; 86900; 86901; 86920; 87340; 88302; 90715; 99464; G0463; J0690; J1885; J2210; J2274; J2370; J2405; J2590; J2765; J3010; J7030; J7120; P9016